=== PATIENT | female | born 1965 | race Two or more races ===

== ENCOUNTER 2017-09-06 15:39 | Emergency (ER) | payer MEDICAID ==
[~2017-09-06] VITALS: Ht 152.4 cm; Wt 70.0 kg
[2017-09-06 16:29] LABS: BASOPHILS # (AUTO) 0.04 x10^3/uL (0-0.1); BASOPHILS % (AUTO) 0 % (0-1); EOSINOPHILS # (AUTO) 0.33 x10^3/uL (0-0.4); EOSINOPHILS % (AUTO) 4 % (1-7); LYMPHOCYTES % (AUTO) 32 % (22-44); MD NO; MEAN CORPUSCULAR HEMOGLOBIN 29.7 pg (27.0-34.8); MEAN CORPUSCULAR HGB CONC 32.6 g/dL (32.4-35.8); MONOCYTES # (AUTO) 0.61 x10^3/uL (0.2-0.8); MONOCYTES % (AUTO) 7 % (2-9); NEUTROPHILS # (AUTO) 4.64 x10^3/uL (1.8-6.8); NEUTROPHILS % (AUTO) 57 % (42-75); PLATELET COUNT 326 x10^3/uL (130-400); RED BLOOD COUNT 4.71 x10^6/uL (3.82-5.3); RED CELL DISTRIBUTION WIDTH 14.4 % (9.6-15.2)
[2017-09-06 16:31] LABS: MICROSCOPIC NOT IND
[2017-09-06 16:34] LABS: CULTURE INDICATED? NO
[2017-09-06 16:36] LABS: ALBUMIN 3.2 g/dL (3.4-5.0); ANION GAP 7 mmol/L (5-15); CALCIUM 8.7 mg/dL (8.5-10.1); CHLORIDE 109 mmol/L (98-107)
[2017-09-06 16:40] LABS: ALANINE AMINOTRANSFERASE 32 U/L (12-78); ALKALINE PHOSPHATASE 148 U/L (45-117); BILIRUBIN,TOTAL 0.2 mg/dL (0.2-1.0); CREATININE 0.74 mg/dL (0.55-1.02)
[2017-09-06 21:04] VITALS: BP 134/72
== END 2017-09-06 21:10 | disposition home or self-care (01) ==
LOC: ED 20:32
DX: R10.30 Lower abdominal pain, unspecified (principal); R30.0 Dysuria
CPT/HCPCS: 36415; 80053; 81003; 85025; 99284

== ENCOUNTER 2020-02-06 00:07 | Emergency (ER) | payer MEDICAID ==
[~2020-02-06] VITALS: Ht 157.5 cm; Wt 67.0 kg
[~2020-02-06 00:07] MED LIST: FOLI-17 PO; SULF500T36 PO
--- NOTE | 2020-02-06 01:20 | NUR ---
PT TO RM AND CARE ASSUMED. ERP AT BEDSIDE TO EVAL.
--- NOTE | 2020-02-06 01:36 | NUR ---
PT C/O INTERMITTENT SOB FOR THE LAST COUPLE WEEKS. WORSE OVER THE LAST COUPLE DAYS. PT WORKS AT [employer] AND IS CONCERNED ABOUT COVID. NO ONE ELSE IN HOME IS SICK. DENIES CP. +DRY COUGH. NO S/S OF ACUTE DISTRESS. VSS. WARM BLANKET GIVEN. CALL LIGHT IN REACH.
[2020-02-06 01:49] LABS: BASOPHILS # (AUTO) 0.04 x10^3/uL (0-0.1); BASOPHILS % (AUTO) 0 % (0-1); EOSINOPHILS # (AUTO) 0.22 x10^3/uL (0-0.4); EOSINOPHILS % (AUTO) 2 % (1-7); LYMPHOCYTES # (AUTO) 3.29 x10^3/uL (1-3.4); LYMPHOCYTES % (AUTO) 32 % (22-44); MD NO; MEAN CORPUSCULAR HEMOGLOBIN 30.4 pg (27.0-34.8); MEAN CORPUSCULAR VOLUME 95.1 fL (80-100); MEAN PLATELET VOLUME 9.3 fL (7.4-10.4); MONOCYTES # (AUTO) 0.84 x10^3/uL (0.2-0.8); MONOCYTES % (AUTO) 8 % (2-9); NEUTROPHILS # (AUTO) 5.88 x10^3/uL (1.8-6.8); NEUTROPHILS % (AUTO) 57 % (42-75); PLATELET COUNT 304 x10^3/uL (130-400); RED BLOOD COUNT 4.21 x10^6/uL (3.82-5.3); RED CELL DISTRIBUTION WIDTH 13.4 % (9.6-15.2)
[2020-02-06 02:00] LABS: ALBUMIN 2.9 g/dL (3.4-5.0); ANION GAP 6 mmol/L (5-15); CHLORIDE 108 mmol/L (98-107); CREATININE 0.72 mg/dL (0.55-1.02)
[2020-02-06 02:03] LABS: TROPONIN I < 0.015 ng/mL (0.000-0.045)
--- NOTE | 2020-02-06 02:15 | NUR ---
Xray at bedside
[2020-02-06 03:12] VITALS: BP 106/39
== END 2020-02-06 04:26 | disposition home or self-care (01) ==
LOC: ED 03:07
DX: R06.00 Dyspnea, unspecified (principal); Z20.828 Contact with and (suspected) exposure to other viral communicable diseases; M79.89 Other specified soft tissue disorders; R94.31 Abnormal electrocardiogram [ECG] [EKG]
CPT/HCPCS: 36415; 71045; 80048; 82040; 83880; 84484; 85025; 93005; 99285; U0001

== ENCOUNTER 2021-01-30 19:25 | Emergency (ER) | payer MEDICAID ==
[~2021-01-30] VITALS: Ht 149.9 cm; Wt 72.7 kg
[~2021-01-30 19:25] MED LIST changes: -FOLI-17 PO; +FOLI1TAB32 PO
[2021-01-30 21:43] LABS: BASOPHILS % (AUTO) 1 % (0-1); EOSINOPHILS % (AUTO) 4 % (1-7); LYMPHOCYTES % (AUTO) 32 % (22-44); MEAN CORPUSCULAR HEMOGLOBIN 30.5 pg (27.0-34.8); MEAN CORPUSCULAR HGB CONC 33.6 g/dL (32.4-35.8); MEAN PLATELET VOLUME 8.5 fL (7.4-10.4); MONOCYTES % (AUTO) 9 % (2-9); NEUTROPHILS % (AUTO) 54 % (42-75); PLATELET COUNT 305 x10^3/uL (130-400); RED BLOOD COUNT 4.51 x10^6/uL (3.82-5.3); RED CELL DISTRIBUTION WIDTH 14.4 % (9.6-15.2)
--- NOTE | 2021-01-30 21:49 | NUR ---
TASK RN: PT PRESENTS WITH C/O ABD PAIN X2-3 DAYS AND GENERAL FATIGUE. DENIES N/V/D. PT HAS A HX OF "GI PROBLMES" PER SON AND WAS SEEN AT [facility] BUT HAS SINCE STOPPED GOING AND STOPPED TAKING MEDICATIONS THAT WERE PERSCRIBED BY THEM. UNKNOWN WHAT MEDS WERE. PT IS IN NO ACUTE DISTRESS. AMBULATORY TO WITH A STEADY GAIT FOR URINE SAMPLE. PIV PLACED AND LABS DRAWN FOR CT. ATTACHED TO BP AND O2 MONITORS. VSS.
[2021-01-30 21:56] LABS: MICROSCOPIC AUTO
[2021-01-30 21:56] LABS: ALANINE AMINOTRANSFERASE 24 U/L (12-78); ALBUMIN 2.9 g/dL (3.4-5.0); ANION GAP 5 mmol/L (5-15); CALCIUM 9.3 mg/dL (8.5-10.1); CHLORIDE 108 mmol/L (98-107); CREATININE 0.69 mg/dL (0.55-1.02)
[2021-01-30 22:00] LABS: ALKALINE PHOSPHATASE 126 U/L (45-117); BILIRUBIN,TOTAL 0.3 mg/dL (0.2-1.0); TOTAL PROTEIN 8.1 g/dL (6.4-8.2); TROPONIN I < 0.015 ng/mL (0.000-0.045)
[2021-01-30] MEDS ORDERED: OMNIPAQUE 350 MG/ML, 100ML BOTTLE ONE (22:30)
[2021-01-30 23:44] VITALS: BP 135/74
--- NOTE | 2021-01-31 00:16 | NUR ---
Discharge instructions given. All questions and concerns addressed. Patient ambulatory with a steady gait. Belongings with patient.
== END 2021-01-31 00:17 | disposition home or self-care (01) ==
LOC: ED 20:00
DX: K51.80 Other ulcerative colitis without complications (principal); R10.31 Right lower quadrant pain
CPT/HCPCS: 36415; 71045; 74177; 80053; 81001; 83690; 84484; 85025; 87086; 93005; 99285; Q9967